=== PATIENT | female | born 1995 | race Two or more races ===

== ENCOUNTER 2017-05-29 15:54 | Emergency (ER) | payer OTHER ==
[~2017-05-29] VITALS: Ht 172.7 cm; Wt 90.7 kg
[2017-05-29 16:05] VITALS: BP 123/67
== END 2017-05-29 16:44 | disposition home or self-care (01) ==
LOC: ER 15:56
DX: H92.01 Otalgia, right ear (principal)
CPT/HCPCS: 82962; 99283; A4606; Z7610

== ENCOUNTER 2024-06-14 21:15 | Inpatient (IN) | payer BC, OTHER ==
[~2024-06-14] VITALS: Ht 172.7 cm; Wt 119.7 kg
[2024-06-14] MEDS ORDERED: VANCOMYCIN 1 GM /D5W 250 ML PB IV ONE (22:28)
[2024-06-14 22:40] LABS: BASOPHILS # (AUTO) 0.1 K/uL (0.0-0.2); BASOPHILS % (AUTO) 0.9 % (0.0-2.0); EOSINOPHILS # (AUTO) 0.4 K/uL (0.0-0.7); EOSINOPHILS % (AUTO) 3.5 % (0.0-6.0); HEMATOCRIT 41 % (33-45); HEMOGLOBIN 13.7 g/dL (11.5-14.8); LYMPHOCYTES # (AUTO) 2.4 K/uL (0.8-4.8); LYMPHOCYTES % (AUTO) 22.6 % (20.0-44.0); MEAN CORPUSCULAR HEMOGLOBIN 29 PG (26.0-33.0); MEAN CORPUSCULAR HGB CONC 33 g/dl (31.0-36.0); MEAN CORPUSCULAR VOLUME 87 fL (82-100); MONOCYTES # (AUTO) 0.6 K/uL (0.1-1.30); MONOCYTES % (AUTO) 5.9 % (2.0-12.0); NEUTROPHILS # (AUTO) 7.1 K/uL (1.8-8.9); NEUTROPHILS % (AUTO) 67.1 % (43.0-81.0); PLATELET COUNT (AUTO) 284 K/uL (150-450); RED BLOOD CELL COUNT(AUTO) 4.77 MIL/uL (4.0-5.2); RED CELL DISTRIBUTION WIDTH 13.8 % (11.5-15.0); WHITE BLOOD COUNT (AUTO) 10.6 K/uL (4.3-11.0)
[2024-06-14 22:46] LABS: CALCIUM, SERUM 9.3 mg/dL (8.5-10.1); CREATININE 0.8 mg/dL (0.6-1.3); POTASSIUM 4.2 mmol/L (3.5-5.1)
[2024-06-14] MEDS: VANCOMYCIN 1 GM in IV D5W 250 ML IV ONE (22:50)
[2024-06-14 22:53] LABS: INR 0.96 (0.91-1.10); PARTIAL THROMBOPLASTIN TIME 28.3 SEC (24.3-34.3); PROTHROMBIN TIME 10.2 SECS (9.2-11.1)
[2024-06-15] MEDS ORDERED: Z GUARD REMEDY 4 OZ OINT TP PRN
[2024-06-15] MEDS ORDERED: ONDANSETRON HCL/PF 4 MG/2 ML VIAL IVP PRN
[2024-06-15] MEDS ORDERED: MAG HYDROX/AL HYDROX/SIMETH 30 ML UDC PO PRN
[2024-06-15] MEDS ORDERED: MAGNESIUM HYDROXIDE 30 ML UDC PO PRN
[2024-06-15] MEDS: ACETAMINOPHEN 325 MG TABLET PO PRN (03:57)
[2024-06-15 04:00] VITALS: BP 141/72; TEMP 98.2; O2SAT 97
[2024-06-15] MEDS: ENOXAPARIN SODIUM 40 MG/0.4 ML DISP.SYRIN SQ SCH (04:19)
[2024-06-15 06:51] LABS: BASOPHILS # (AUTO) 0.1 K/uL (0.0-0.2); BASOPHILS % (AUTO) 0.6 % (0.0-2.0); EOSINOPHILS # (AUTO) 0.3 K/uL (0.0-0.7); EOSINOPHILS % (AUTO) 2.9 % (0.0-6.0); HEMATOCRIT 37 % (33-45); HEMOGLOBIN 12.5 g/dL (11.5-14.8); LYMPHOCYTES # (AUTO) 2.6 K/uL (0.8-4.8); LYMPHOCYTES % (AUTO) 29.6 % (20.0-44.0); MEAN CORPUSCULAR HEMOGLOBIN 29 PG (26.0-33.0); MEAN CORPUSCULAR HGB CONC 34 g/dl (31.0-36.0); MEAN CORPUSCULAR VOLUME 86 fL (82-100); MONOCYTES # (AUTO) 0.6 K/uL (0.1-1.30); NEUTROPHILS # (AUTO) 5.2 K/uL (1.8-8.9); NEUTROPHILS % (AUTO) 59.9 % (43.0-81.0); PLATELET COUNT (AUTO) 243 K/uL (150-450); RED BLOOD CELL COUNT(AUTO) 4.28 MIL/uL (4.0-5.2); RED CELL DISTRIBUTION WIDTH 13.4 % (11.5-15.0); WHITE BLOOD COUNT (AUTO) 8.7 K/uL (4.3-11.0)
[2024-06-15 07:11] LABS: CALCIUM, SERUM 8.5 mg/dL (8.5-10.1); CREATININE 0.8 mg/dL (0.6-1.3); MAGNESIUM 1.9 mg/dL (1.8-2.4); PHOSPHORUS 4.6 mg/dL (2.5-4.9); POTASSIUM 4.2 mmol/L (3.5-5.1)
[2024-06-15] MEDS ORDERED: HYDR-3980 PO (07:52)
[2024-06-15 08:30] VITALS: BP 116/60; TEMP 98.2; O2SAT 97
[2024-06-15] MEDS ORDERED: VANCOMYCIN 1.5 GM in IV D5W 500 ML IV ONE (08:30)
[2024-06-15] MEDS ORDERED: CEFTRIAXONE 1 G in IV D5W 50 ML IV SCH (09:00)
[2024-06-15] MEDS: CEFTRIAXONE 2 G in IV D5W 100 ML IV SCH (09:02)
[2024-06-15] MEDS: KETOROLAC TROMETHAMINE 15 MG/ML VIAL IV PRN (12:36)
[2024-06-15] MEDS ORDERED: VANCOMYCIN HCL 1.25 GM in IV D5W 250 ML IV SCH (16:00)
[2024-06-15 16:06] VITALS: BP 116/59; TEMP 98.4; O2SAT 98
[2024-06-15 20:00] VITALS: BP 124/75; TEMP 98.2; O2SAT 96
[2024-06-16 04:00] VITALS: BP 110/73; TEMP 98.1; O2SAT 96
[2024-06-16 06:50] LABS: CALCIUM, SERUM 8.2 mg/dL (8.5-10.1); CREATININE 0.7 mg/dL (0.6-1.3); POTASSIUM 3.9 mmol/L (3.5-5.1)
[2024-06-16 08:20] VITALS: BP 142/75; TEMP 98.2; O2SAT 100
[2024-06-16 16:15] VITALS: BP 133/63; TEMP 98.1; O2SAT 98
[2024-06-16 20:00] VITALS: BP 128/78; TEMP 98.2; O2SAT 98
[2024-06-17] MEDS: ZOLPIDEM TARTRATE 5 MG TABLET PO PRN (00:11)
[2024-06-17 04:00] VITALS: BP 124/65; TEMP 98.1; O2SAT 98
[2024-06-17 06:55] LABS: CALCIUM, SERUM 8.4 mg/dL (8.5-10.1); CREATININE 0.6 mg/dL (0.6-1.3)
[2024-06-17 08:00] VITALS: BP 124/65; TEMP 98.1; O2SAT 100
[2024-06-17 16:00] VITALS: BP 110/80; TEMP 98.1; O2SAT 98
[2024-06-17 20:00] VITALS: BP 122/78; TEMP 98.2; O2SAT 100
[2024-06-18 04:00] VITALS: BP 135/62; TEMP 98; O2SAT 95
[2024-06-18 07:00] LABS: CALCIUM, SERUM 8.7 mg/dL (8.5-10.1); CREATININE 0.6 mg/dL (0.6-1.3); POTASSIUM 3.8 mmol/L (3.5-5.1)
[2024-06-18 08:00] VITALS: BP 125/63; TEMP 97.7; O2SAT 97
[2024-06-18] MEDS ORDERED: diphenhydrAMINE HCL/ZINC ACET CREAM 28.3 GM TUBE TP PRN (10:00)
[2024-06-18 16:00] VITALS: BP 131/86; TEMP 98.5; O2SAT 98
[2024-06-18 20:00] VITALS: BP 111/63; TEMP 97.7; O2SAT 96
[2024-06-19 04:00] VITALS: BP 113/57; TEMP 97.5; O2SAT 96
[2024-06-19 07:56] LABS: BASOPHILS % (AUTO) 0.6 % (0.0-2.0); EOSINOPHILS # (AUTO) 0.5 K/uL (0.0-0.7); EOSINOPHILS % (AUTO) 6.2 % (0.0-6.0); HEMATOCRIT 41 % (33-45); HEMOGLOBIN 13.2 g/dL (11.5-14.8); LYMPHOCYTES # (AUTO) 1.7 K/uL (0.8-4.8); LYMPHOCYTES % (AUTO) 22.3 % (20.0-44.0); MEAN CORPUSCULAR HEMOGLOBIN 28 PG (26.0-33.0); MEAN CORPUSCULAR HGB CONC 33 g/dl (31.0-36.0); MEAN CORPUSCULAR VOLUME 87 fL (82-100); MONOCYTES # (AUTO) 0.5 K/uL (0.1-1.30); MONOCYTES % (AUTO) 6.7 % (2.0-12.0); NEUTROPHILS % (AUTO) 64.2 % (43.0-81.0); PLATELET COUNT (AUTO) 258 K/uL (150-450); RED BLOOD CELL COUNT(AUTO) 4.66 MIL/uL (4.0-5.2); RED CELL DISTRIBUTION WIDTH 13.5 % (11.5-15.0); WHITE BLOOD COUNT (AUTO) 7.8 K/uL (4.3-11.0)
[2024-06-19 08:00] VITALS: BP 122/61; TEMP 98.2; O2SAT 98
[2024-06-19 08:29] LABS: CALCIUM, SERUM 8.3 mg/dL (8.5-10.1); CREATININE 0.6 mg/dL (0.6-1.3); POTASSIUM 4.1 mmol/L (3.5-5.1)
[2024-06-19 16:00] VITALS: BP 129/70; TEMP 98.1; O2SAT 96
[2024-06-19 20:00] VITALS: BP 117/64; TEMP 97.5; O2SAT 98
[2024-06-19] MEDS: NEO/BACI/POLY B/HC OINT (15GM) 15 GM TUBE TP SCH (21:00)
[2024-06-19] MEDS: LINEZOLID 600 MG TABLET PO SCH (21:31)
[2024-06-20 04:00] VITALS: BP 117/58; TEMP 97.5; O2SAT 100
[2024-06-20 07:09] LABS: BASOPHILS # (AUTO) 0.1 K/uL (0.0-0.2); BASOPHILS % (AUTO) 0.7 % (0.0-2.0); EOSINOPHILS # (AUTO) 0.4 K/uL (0.0-0.7); EOSINOPHILS % (AUTO) 5.5 % (0.0-6.0); HEMATOCRIT 40 % (33-45); LYMPHOCYTES # (AUTO) 1.7 K/uL (0.8-4.8); LYMPHOCYTES % (AUTO) 22.5 % (20.0-44.0); MEAN CORPUSCULAR HEMOGLOBIN 29 PG (26.0-33.0); MEAN CORPUSCULAR HGB CONC 33 g/dl (31.0-36.0); MEAN CORPUSCULAR VOLUME 87 fL (82-100); MONOCYTES # (AUTO) 0.5 K/uL (0.1-1.30); MONOCYTES % (AUTO) 6.7 % (2.0-12.0); NEUTROPHILS # (AUTO) 4.9 K/uL (1.8-8.9); NEUTROPHILS % (AUTO) 64.6 % (43.0-81.0); PLATELET COUNT (AUTO) 256 K/uL (150-450); RED BLOOD CELL COUNT(AUTO) 4.57 MIL/uL (4.0-5.2); RED CELL DISTRIBUTION WIDTH 13.7 % (11.5-15.0); WHITE BLOOD COUNT (AUTO) 7.6 K/uL (4.3-11.0)
[2024-06-20 08:00] VITALS: BP 132/112; TEMP 97.9; O2SAT 98
[2024-06-20 08:05] LABS: CALCIUM, SERUM 8.6 mg/dL (8.5-10.1); CREATININE 0.6 mg/dL (0.6-1.3); MAGNESIUM 2.1 mg/dL (1.8-2.4); PHOSPHORUS 3.3 mg/dL (2.5-4.9); POTASSIUM 3.8 mmol/L (3.5-5.1)
[2024-06-20] MEDS ORDERED: KETOROLAC TROMETHAMINE 15 MG/ML VIAL IV PRN (09:30)
[2024-06-20] MEDS: diphenhydrAMINE HCL/ZINC ACET CREAM 28.3 GM TUBE TP PRN (10:19)
[2024-06-20] MEDS ORDERED: LINE600T13 PO (12:20)
[2024-06-20 16:00] VITALS: BP 122/69; TEMP 97.5; O2SAT 97
== END 2024-06-20 16:50 | disposition home health service (06) | DRG 721 ==
LOC: ER 21:18 → MEDSG1 06-15 01:53
PROVIDERS: ADMIT Nurse Practitioner Family; ATTEND Student in an Organized Health Care Education/Training Program
DX: T81.49XA Infection following a procedure, other surgical site, initial encounter (principal); L03.116 Cellulitis of left lower limb; Y83.8 Other surgical procedures as the cause of abnormal reaction of the patient, or of later complication, without mention of misadventure at the time of the procedure; Y92.009 Unspecified place in unspecified non-institutional (private) residence as the place of occurrence of the external cause; E66.9 Obesity, unspecified; Z68.42 Body mass index [BMI] 45.0-49.9, adult; Z88.1 Allergy status to other antibiotic agents
CPT/HCPCS: 36415; 71045-TC; 73630-TC; 80048-TC; 80202-TC; 83735-TC; 84100-TC; 85025-TC; 85730-TC; 87040-TC; 93971-TC; 97110-TC; 97116-TC; 97530-TC; A4223; G0378; J0696; J1650; J1885; J3370; J3371; J7050; J7060